=== PATIENT | female | born 1990 | race African-American/Black ===

== ENCOUNTER 2019-04-19 11:10 | Emergency (ER) | payer SELFPAY ==
[~2019-04-19] VITALS: Ht 167.6 cm; Wt 57.0 kg
[2019-04-19] MEDS ORDERED: SODIUM CHLORIDE 0.9% 1,000 ML IV ONE ×2 (11:21→11:40)
[2019-04-19] MEDS ORDERED: HYDROCORTISONE SOD SUCCINATE 100 MG/2 ML VIAL IV ONE (11:30)
[2019-04-19] MEDS ORDERED: VECURONIUM BROMIDE 10 MG/VIAL IV ONE ×2 (11:30)
[2019-04-19] MEDS ORDERED: ETOMIDATE 2MG/ML 10ML VIAL IV ONE ×2 (11:30)
[2019-04-19] MEDS ORDERED: SODIUM CHLORIDE 0.9% 10ML VIAL ONE (11:30)
[2019-04-19] MEDS ORDERED: MIDAZOLAM HCL 50 MG in DEXTROSE 5% WATER 40 ML IV ONE ×2 (11:30→14:00)
[2019-04-19 11:40] LABS: BG BASE EXCESS -1.1 mmol/L (-2.0-2.0); BG DEOXYHEMOGLOBIN 0.5 % (0.0-5.0); BG HCO3 ACT 21.9 mmol/L (22.0-26.0); BG METHEMOGLOBIN 0.4 % (0.0-1.5); BG OXYGEN SATURATION 99.5 % (92.0-98.5); BG OXYHEMOGLOBIN 98.1 % (94.0-97.0); BG PCO2 31.6 mmHg (35.0-45.0); BG PH 7.459 (7.350-7.450); BG PO2 567.9 mmHg (75.0-100.0); BG SAMPLE SITE RIGHT BRACHIAL; BG TIDAL VOLUME(mL) 500 mL; BG TOTAL HEMOGLOBIN 12.9 g/dL (12.0-18.0); BG VENT MODE VENT - A/C; BG VENT RATE 16 set
[2019-04-19] MEDS ORDERED: MIDAZOLAM HCL 50 MG in DEXTROSE 5% WATER 50ML IV PRN (11:45)
[2019-04-19] MEDS ORDERED: LORAZEPAM 2MG/ML CPJ IV ONE (12:00)
[2019-04-19] MEDS ORDERED: PROPOFOL 10MG/ML 100ML 100 ML IV SCH ×2 (12:15→14:00)
[2019-04-19] MEDS ORDERED: MORPHINE SULFATE 10 MG/ML CPJ IV ONE ×2 (12:15)
[2019-04-19] MEDS ORDERED: PROPOFOL 10MG/ML 100ML 100 ML IV ONE (12:19)
[2019-04-19 12:25] LABS: BASOPHILS % 0.3 % (0.0-2.0); EOSINOPHILS % 0.1 % (0.0-5.0); HEMOGLOBIN. 11.6 g/dL (12.0-16.0); LYMPHOCYTES % 10.5 % (20.0-50.0); MEAN CORPUSCULAR HEMOGLOBIN 30.9 pg (28.0-32.0); MEAN CORPUSCULAR VOLUME 90.4 fL (81.0-99.0); MEAN PLATELET VOLUME 7.3 fl (7.4-10.4); MONOCYTES % 10.1 % (2.0-8.0); PLATELET 270 x1000/uL (130-400); RED BLOOD CELL COUNT 3.76 mill/uL (4.2-5.4); RED CELL DISTRIBUTION WIDTH 13.1 % (11.6-14.6)
[2019-04-19 12:31] LABS: CHLORIDE 111 mEq/L (98-107)
[2019-04-19 12:36] LABS: ETHANOL BLOOD < 10 mg/dL; INR 1.1; PROTHROMBIN TIME 11.2 sec (9.6-11.0)
[2019-04-19 12:42] LABS: CLARITY URINE CLEAR (CLEAR); COLOR URINE YELLOW (YELLOW); KETONES URINE 1+ (NEGATIVE); LEUKOCYTE ESTERASE URINE NEGATIVE (NEGATIVE); NITRITE URINE NEGATIVE (NEGATIVE); OCCULT BLOOD URINE 2+ (NEGATIVE); PROTEIN URINE TRACE (NEGATIVE); SPECIFIC GRAVITY URINE 1.022 (1.005-1.030); UROBILINOGEN URINE 0.2 E.U./dL (0.2-1.0)
[2019-04-19 12:48] LABS: HCG SCREEN NEGATIVE
[2019-04-19] MEDS ORDERED: SILVER SULFADIAZINE 1% CREAM 50GM TOP SCH (13:00)
[2019-04-19 13:07] LABS: CREATINE KINASE MB FRACTION 14.6 ng/mL (0.5-3.6)
[2019-04-19 13:10] LABS: *AMPHETAMINES SCREEN URINE NEGATIVE (NEGATIVE); *BARBITURATES SCREEN URINE NEGATIVE (NEGATIVE); *BENZODIAZEPINES SCREEN URINE NEGATIVE (NEGATIVE); *COCAINE SCREEN URINE NEGATIVE (NEGATIVE); METHADONE URINE SCREEN NEGATIVE (NEGATIVE)
[2019-04-19 13:11] LABS: OPIATES URINE SCREEN NEGATIVE (NEGATIVE); PHENCYCLIDINE URINE SCREEN NEGATIVE (NEGATIVE)
[2019-04-19 13:18] LABS: CANNABINOID URINE SCREEN PRESUMTIVE POSITIVE (NEGATIVE)
[2019-04-19 15:49] VITALS: BP 116/81
== END 2019-04-19 16:08 | disposition short-term general hospital (02) ==
LOC: ER 11:10
DX: T59.811A Toxic effect of smoke, accidental (unintentional), initial encounter (principal); J70.5 Respiratory conditions due to smoke inhalation; T30.0 Burn of unspecified body region, unspecified degree; Y92.22 Religious institution as the place of occurrence of the external cause; G92 Toxic encephalopathy; J96.90 Respiratory failure, unspecified, unspecified whether with hypoxia or hypercapnia; E86.0 Dehydration; D64.9 Anemia, unspecified
CPT/HCPCS: 31500; 36415; 36556; 36600; 43760; 51702; 70450; 71045; 80053; 80305; 80320; 81003; 82375; 82550; 82553; 82805; 83605; 83690; 83880; 84145; 84484; 84703; 85025; 85610; 86850; 86900; 86901; 87040; 87086; 93005; 94002; 96361; 96365; 96366; 96367; 96375; 99291; J1720; J2060; J2250; J2270; J2704; J3490; J7030; J7060; Z7610; A4315; G0480